=== PATIENT | male | born 1940 | race Caucasian/White ===

== ENCOUNTER → 2016-10-12 | Outpatient (CLI) | payer OTHER, BC | PROVIDERS: ATTEND Internal Medicine Hematology & Oncology | DX: R13.13 Dysphagia, pharyngeal phase (principal); R63.3 Feeding difficulties; J44.9 Chronic obstructive pulmonary disease, unspecified; G93.9 Disorder of brain, unspecified; Z85.72 Personal history of non-Hodgkin lymphomas; Z92.21 Personal history of antineoplastic chemotherapy | CPT/HCPCS: 74230; 92611; G8996; G8997; G8998 ==

== ENCOUNTER 2017-07-04 11:43 | Emergency (ER) | payer OTHER, BC ==
[2017-07-04] MEDS ORDERED: LEVALBUTEROL 1.25 MG/3 ML DEYVIAL IH ONE (12:14)
--- NOTE | 2017-07-04 12:18 | EDPHY ---
H & P Stated Complaint: dry cough since Wednesday Time Seen by Provider: 07/04/17 11:48 HPI/ROS: This patient complains of a cough of 3 days duration-dry and increasing in frequency. He is brought in by his for further evaluation of the symptoms by private vehicle. The patient has extensive past medical history including COPD on home O2 at 2 liters/minute at baseline and reports no increase in his baseline dyspnea with current coughing. They tried Mucinex without improvement in his symptoms that also include coryza. His recent history is notable for leukopenia attributable to his chemotherapy on a CBC on 1221 within overall white count of 2.4 K and an ANC of 1400. He is followed by Dr. Carlton for his non-Hodgkin's lymphoma. ROS: Constitutional: No high fevers or chills. No increase in fatigue. No other constitutional symptoms. HEENT: Positive nasal discharge. No sinus pain. No ear pain. No sore throat. He had a recent moles procedure to the right ear for squamous cell CA 10 days ago and reports no significant discomfort. Pulmonary: No pleuritic pain. Nonproductive. No hemoptysis. Cardiovascular: No chest pain or heart palpitations. No lightheadedness. No lower extremity swelling. No orthopnea or paroxysmal nocturnal dyspnea. GI: No abdominal pain. He does have loose stools-needed for loose watery stools over the past 3 days per day. No nausea or vomiting. No belly pain. : No urinary symptoms Musculoskeletal: No significant myalgias or other complaints. Neuro: No headache. No focal numbness tingling weakness Integumentary: No skin rash Endocrine: No polyuria, polydipsia or blurred vision. No other complaints Complete review of symptoms otherwise negative Source: Patient Exam Limitations: No limitations - Personal History Current Tetanus Diphtheria and Acellular Pertussis (TDAP): Yes Tetanus Vaccine Date: 2007 - Medical/Surgical History PMH: With patient's CO he had no chest pain-a collapse with syncope or presyncope Hx Asthma: Yes Hx Chronic Respiratory Disease: Yes Hx Diabetes: Yes Hx Cardiac Disease: Yes Hx Renal Disease: Yes Hx Cirrhosis: No Hx Alcoholism: No Hx HIV/AIDS: No Hx Splenectomy or Spleen Trauma: No Other PMH: HTN, CO 2006, AFIB, COPD, STGE4 KIDNEY DZ, DIABETES. CATARACT BILAT , TRACH CHILD, ROTATOR CUFF SURG, KNEE SURG, FEET SURG, STENT LT LEG, EAR SURG, skin cancer, non hodgkins lymphoma, - Family History Significant Family History: No pertinent family hx - Social History Smoking Status: Former smoker Alcohol Use: None Drug Use: None - Physical Exam Exam: Pleasant elderly male with normal vital signs on 2 L nasal cannula O2 General Appearance: Alert, no distress. Eyes: Pupils equal and round no pallor or injection. ENT, Mouth: Mucous membranes moist. Oropharynx is clear. Ears are clear bilaterally. Patient has a clean dry intact dressing to the right earlobe-site of moles procedure Respiratory: Rhonchi at the right base. Otherwise clear to auscultation bilaterally Cardiovascular: Regular rate and rhythm. No murmur gallop rub. No JVD. No calf swelling or tenderness. No peripheral edema. Gastrointestinal: Abdomen is soft and nontender, no masses, bowel sounds normal. Neurological: GCS 15 without focal deficits. Skin: Warm and dry, no rashes. Musculoskeletal: Neck is supple nontender. Extremities are symmetrical, full range of motion. Psychiatric: Mood and affect normal DIFFERENTIAL DIAGNOSIS: After history and physical exam differential diagnosis was considered for viral URI with cough, COPD exacerbation, pneumonia, influenza , mi Constitutional: Initial Vital Signs Heart Rate 67 07/04/17 11:47 Respiratory Rate 18 07/04/17 11:47 Blood Pressure 134/56 H 07/04/17 11:47 O2 Sat (%) 97 07/04/17 11:47 O2 Delivery Mode Nasal Cannula O2 (L/minute) 2 Allergies/Adverse Reactions: levofloxacin [From Levaquin] Allergy (Verified 07/04/17 11:51) Sulfa (Sulfonamide Antibiotics) Allergy (Verified 07/04/17 11:51) Home Medications: Medication Instructions Recorded Albuterol Hfa Anes Only 03/16/14 Bd Pen Wdl U/F 03/16/14 [place] 03/16/14 Furosemide 03/16/14 Glucagon Emergency Kit 03/16/14 Levemir 03/16/14 Nitrostat 03/16/14 Tradjenta 03/16/14 Venlafaxine HCl 03/16/14 Vitamin D3 03/16/14 Warfarin Sodium 03/16/14 novoLOG 03/16/14 Lantus 100 UNITS/ML (*) 12/31/17 Lenalidomide 07/04/17 Nitrostat 07/04/17 Stiolto Respimat Inhal [place] 07/04/17 riTUXimab 07/04/17 Medical Decision Making - Diagnostics EKG Interpretation: 12 lead EKG performed at 12:20 p.m. indication : Dyspnea rule out ischemic cardiac disease Sinus rhythm 70 Intervals: P R of 199 QRS of 156, QTC of 493 [place]: P of 0, QRS of 25, T of 212 Overall assessment sinus rhythm with left bundle branch block. No further analysis attempt given left bundle branch block. When compared to prior EKG dated 04/05/2015 left bundle branch block is present on the previous EKG. He was in AFib at that time. Imaging Results: Two-view chest x-ray: No focal infiltrates. Positive COPD by my interpretation. Imaging: I viewed and interpreted images myself ED Course/Re-evaluation: IV Nasal cannula O2 2 L with good O2 sats Patient is placed on a personnel monitor remained stable while here. Xopenex neb with marked reduction in frequency of his dry cough. He felt subjective improvement as well. A review of labs reveals leukopenia and mild neutropenia, also mild thrombocytopenia. Electrolytes are consistent with prior electrolyte studies for this patient with a baseline creatinine of 2.5. His troponin is elevated to the 0.08. His rapid influenza test is negative. Given his elevated troponin result will treat him with aspirin 324. Given that the patient is normotensive with no chest pain and a normal heart rate in the 60s, will hold on beta nikki nitrates at this time. Given this patient's combination of known CAD, pre-existing LBBB that makes EKG interpretation in terms of acute ischemia & elevated troponin, he warrants admission for further workup & treatment of potential acute cardiac ischemic disease. He also has mild neutropenia, COPD exacerbation & slight elevation of his venous lactate, concerning for early SIRS or sepsis. The patient requests [facility] for his admission. I spoke with Dr. Salas, hospitalist at [facility] accepts the patient for transfer I spoke with Dr. Tee, oncologist on-call for Dr. Carlton who requests antibiotic treatment given his age in neutropenia Ceftriaxone 1 g IV and doxycycline 100 p. o. (on warfarin so will avoid macrolides) Venous lactate is slightly elevated 2.2. Treated with saline bolus. The patient was transferred prior to the 2 hour repeat lactate interval. The patient remained stable throughout his stay here without additional symptoms or any instability in his vital signs. Discussion: This patient has a cough likely attributable to viral URI and COPD/ mild COPD exacerbation. However given extensive past medical history workup was pursued that also revealed neutropenia attributable to his chemotherapy. His ANC is 950. Given slightly elevated venous lactate, cannot rule out early sepsis in this patient. Will cover him with antibiotics and transfer to [facility] for admission. Patient remained stable at the time of transfer. Total bedside critical care time: 20" - Data Points Laboratory Results: Laboratory Results 07/04/17 12:25 07/04/17 12:25 Microbiology Results: MICROBIOLOGY 07/04/17 12:58 Blood Blood Culture - Preliminary 07/04/17 12:25 Blood Blood Culture - Preliminary Medications Given: Discontinued Medications Aspirin (Aspirin) 324 mg PO EDNOW ONE Stop: 07/04/17 13:22 Last Admin: 07/04/17 13:29 Dose: 324 mg Doxycycline Hyclate (Doxycycline Hyclate) 100 mg PO EDNOW ONE PRN Reason: Protocol Stop: 07/04/17 14:18 Last Admin: 07/04/17 14:45 Dose: 100 mg Sodium Chloride (Ns) 1,000 mls @ 0 mls/hr IV ONCE ONE; Wide Open PRN Reason: Protocol Stop: 07/04/17 13:54 Last Admin: 07/04/17 14:41 Dose: 1,000 mls Ceftriaxone Sodium 1 gm/ (Sodium Chloride) 100 mls @ 200 mls/hr IV EDNOW ONE PRN Reason: Protocol Stop: 07/04/17 14:34 Last Admin: 07/04/17 14:40 Dose: 100 mls Levalbuterol (Xopenex 1.25mg Neb) 1.25 mg IH EDNOW ONE Stop: 07/04/17 12:15 Last Admin: 07/04/17 12:59 Dose: 1.25 mg Departure - Departure Disposition: Acute Care Hospital Not [facility] Clinical Impression: Elevated troponin, COPD exacerbation Neutropenia Qualifiers: Neutropenia type: other drug-induced Qualified Code(s): D70.2 - Other drug- induced agranulocytosis Clinical Impression: (Ruled Out): Cough Condition: Fair Referrals: HARLAN SANTO [Other] - As per Instructions
--- NOTE | 2017-07-04 12:23 | CPEKG ---
Heart Rate: 70 RR Interval: 857 P-R Interval: 199 QRSD Interval: 156 QT Interval: 456 QTC Interval: 493 P [place]: 0 QRS [place]: 25 T Wave [place]: 212 EKG Severity - ABNORMAL ECG - EKG Impression: SINUS RHYTHM EKG Impression: ATRIAL PREMATURE COMPLEX EKG Impression: LEFT BUNDLE BRANCH BLOCK Electronically Signed By: Sly Waggoner 05-Jul-2017 10:30:48
[2017-07-04 12:46] LABS: INR 1.84 (0.83-1.16); PROTIME(PATIENT) 20.9 SEC (12.0-15.0)
[2017-07-04 12:54] LABS: PLATELET COUNT 55 10^3/uL (150-400)
[2017-07-04] MEDS ORDERED: ASPIRIN 81 MG CHEWABLE TAB PO ONE (13:21)
[2017-07-04] MEDS ORDERED: NS 1,000 ML IV ONE (13:53)
[2017-07-04] MEDS ORDERED: DOXYCYCLINE HYCLATE 100 MG CAP/TAB PO ONE (14:17)
[2017-07-04 16:11] VITALS: BP 124/67; PULSE 77; RESP 16; TEMP 98.4; O2SAT 98
== END 2017-07-04 15:51 | disposition short-term general hospital (02) ==
LOC: CED 11:43
DX: J44.1 Chronic obstructive pulmonary disease with (acute) exacerbation (principal); D70.2 Other drug-induced agranulocytosis; R79.89 Other specified abnormal findings of blood chemistry; E11.9 Type 2 diabetes mellitus without complications; I12.9 Hypertensive chronic kidney disease with stage 1 through stage 4 chronic kidney disease, or unspecified chronic kidney disease; N18.4 Chronic kidney disease, stage 4 (severe); I25.2 Old myocardial infarction; Z87.891 Personal history of nicotine dependence; Z79.01 Long term (current) use of anticoagulants; Z79.4 Long term (current) use of insulin; Z85.828 Personal history of other malignant neoplasm of skin; Z85.72 Personal history of non-Hodgkin lymphomas
CPT/HCPCS: 71020; 93005; 96361; 96365; 99285; J0696; 80048-PO; 83605-PO; 84484-PO; 85025-PO; 85610-PO; 85730-PO; 87400-PO

== ENCOUNTER 2017-07-18 08:26 | Inpatient (IN) | payer OTHER, BC ==
--- NOTE | 2017-07-18 08:45 | CPEKG ---
Heart Rate: 103 RR Interval: 583 QRSD Interval: 148 QT Interval: 436 QTC Interval: 571 QRS [place]: 28 T Wave [place]: 222 EKG Severity - ABNORMAL ECG - EKG Impression: ATRIAL FIBRILLATION EKG Impression: LEFT BUNDLE BRANCH BLOCK Electronically Signed By: Michael Arevalo 18-Jul-2017 15:07:57
[2017-07-18] MEDS ORDERED: IPRATROPIUM/ALBUTEROL 3 ML DEYVIAL IH ONE (08:56)
--- NOTE | 2017-07-18 08:59 | EDPHY ---
General - History Smoking Status: Former smoker Narrative: CHIEF COMPLAINT: Cough, fever HISTORY OF PRESENT ILLNESS: Patient presents with 2 days history of cough, intermittent fever, nausea, body aches. No chest pain. No headache. No neck pain or stiffness. No abdominal pain. No rashes or lesions. Patient does have extensive medical history including non-Hodgkin's lymphoma with recent hospitalization for lower respiratory infection on July 04. This was a [facility]. He was treated with antibiotics and discharged on the with ongoing antibiotic care. His symptoms did resolve until yesterday morning. Yesterday morning he noted cough that has been somewhat dry but sometimes productive. It is persistent. He has had fever with a T-max of 101. He has had some nausea but no vomiting. Some body aches. Minimal shortness of breath. No other associated complaints or modifying factors. REVIEW OF SYSTEMS: Ten systems reviewed and are negative unless otherwise noted in the HPI PCP: Dr. Jameson SPECIALISTS: Dr. Carlton, oncology Dr. Cotto, cardiology Dr. Adames, Nephrology PAST MEDICAL HISTORY: Non Hodgkin's lymphoma (mantle cell), COPD, atrial fibrillation, diabetes mellitus, coronary artery disease, chronic kidney disease stage 3-4 PAST SURGICAL HISTORY: No recent surgical history SOCIAL HISTORY: Nonsmoker. Lives with his spouse independently. Recently hospitalized at [facility] FAMILY HISTORY: Noncontributory EXAMINATION General Appearance: Alert, no distress, frail Head: normocephalic, atraumatic Eyes: Bilateral arcus senilis. Pupils equal and round, no conjunctival pallor or injection. EOMs intact ENT, Mouth: Mucous membranes moist. Uvula midline. Airway is widely patent Neck: Normal inspection, supple, non-tender. No meningeal signs Respiratory: Scattered rhonchi. Mild dry crackles. No wheezing. No diminishment. No distress. Cardiovascular: Irregularly irregular rate and rhythm. Intermittently tachycardic. Gastrointestinal: Abdomen is soft and nontender. No guarding. No distention or tympany Back: non-tender, no bony abnormalities Neurological: GCS 15. A&O, nonfocal, strength is symmetric in the limbs. Skin: Warm and dry, no rash. Multiple H box. No cellulitis or fluctuance noted Extremities: Nontender, no pedal edema. Range of motion is symmetric Psychiatric: Mood and affect normal DIFFERENTIAL DIAGNOSES: Including but not limited to sepsis, pneumonia, bronchitis, influenza, lower respiratory infection MDM: 8:55 a.m. Cough with fever, congestion body aches and nausea. No vomiting. No abdominal pain. Vital signs are tachycardic and tachypneic. Given his history and his vital signs, we immediately realized the possibility of sepsis in this patient. Thus he already has blood cultures being drawn, lactic acid being drawn. Chest x-ray, electronic device monitor, EKG and laboratory studies are all being obtained as quickly as possible. He is awake and alert no acute distress but will likely require admission the hospital. 9:10 a.m. Lactic acid is just within normal limits at 2.1. Remainder of laboratory studies pending. 9:30 a.m. Creatinine is elevated but at baseline. CBC pending. 9:45 a.m. positive for flu A. He is neutropenic but relatively close to baseline. He is afebrile here. He does not yet require supplemental oxygen, but given his complex history he will require admission to the hospital. I will discuss with hospitalist regarding his neutropenic fever treatment. Chest x-ray appears to be more viral and less likely pneumonia. This is not yet been read by radiologist. He is in no acute distress. 10:00 a.m. Positive influenza a with neutropenia likely due to chemo. He is afebrile. He is tachycardic but not hypoxic. He is not altered or delirious. He does appear ill but is stable. He does have underlying CHF with mild exacerbation, hypoxemia intermittently, and chronic AFib. He will require admission the hospital. At this time Dr. Arevalo has discussed with the hospitals. Procalcitonin is pending. We have not ordered antibiotics given his positive influenza A. We will defer to hospitalist for their recommendation regarding neutropenic treatment. I also did not order any IV fluid because his lactic acid was normal, he was not hypotensive, and he has a BNP that is significantly elevated. This would likely place him fluid overload, thus no IV fluid was ordered. At this time he has been admitted in stable condition with Tamiflu ordered. SUPERVISION: Patient was independently examined, but I discussed the case with my secondary supervising physician . Patient was evaluated and examined in conjunction with my secondary supervising physician as documented. We have both examined the patient. (Adis Cruz) Medical Decision Making: I evaluated this patient and discussed the case and workup in the data with Colton the physician certified medical technician assistant. Id I am in agreement that this patient has borderline elevated lactate however also has a significantly elevated BNP and history of congestive failure so additional fluids are not appropriate at this time. This patient is also a lymphoma patient who is currently on oral chemotherapy. Although he may be at risk for pulmonary embolus or other thromboembolic complications he has stage 3-4 kidney disease and we cannot use contrast currently to assess his lungs or to see if his recurrent infectious processes are secondary to any lymphoma at this time. We will treat him as a nosocomial infection since he was recently hospitalized. (iMchael Arevalo) - Diagnostics Imaging Results: Imaging Impressions Chest X-Ray 07/18/17 08:53 Impression: No pneumonia. Chronic airways disease. - Objective Vital Signs: Initial Vital Signs Temperature (C) 98.8 F 07/18/17 08:26 Heart Rate 112 H 07/18/17 08:26 Respiratory Rate 24 H 07/18/17 08:26 Blood Pressure 104/69 07/18/17 08:26 O2 Sat (%) 96 07/18/17 08:26 O2 Delivery Mode Room Air Allergies/Adverse Reactions: levofloxacin [From Levaquin] Allergy (Verified 07/04/17 11:51) Sulfa (Sulfonamide Antibiotics) Allergy (Verified 07/04/17 11:51) Home Medications: Medication Instructions Recorded Cholecalciferol Vit D3 [Vitamin D3 1,000 units PO DAILY 03/16/14 (*)] Furosemide [Lasix 20 MG (*)] 20 mg PO DAILY 03/16/14 Insulin Aspart [novoLOG] 4 unit SC TIDMEAL PRN 03/16/14 Linagliptin [Tradjenta] 5 mg PO DAILY 03/16/14 Venlafaxine HCl [Venlafaxine HCl 150 mg PO DAILY 03/16/14 ER] Warfarin Sodium [Coumadin 5MG (*)] 2.5 mg PO SUTUTHSA@16 03/16/14 Lantus 100 UNITS/ML (*) 1 - 2 unit SC HS PRN 07/04/17 Tiotropium Br/Olodaterol HCl 2 puffs IH DAILY 07/04/17 [Stiolto Respimat Inhal [place]] riTUXimab [Rituxan 100mg (RX)] 0 mg IV Q60D 07/04/17 Albuterol [Proventil Inhaler HFA 2 puffs IH Q4 PRN 07/18/17 (*)] Dronedarone HCl [Multaq 400 mg (*)] 400 mg PO BIDMEAL 07/18/17 Lenalidomide [Revlimid] 10 mg PO DAILY 07/18/17 Rosuvastatin Calcium [Crestor] 10 mg PO DAILY@18 07/18/17 Warfarin Sodium [Coumadin 2MG (*)] 4 mg PO MOWEFR@16 07/18/17 Laboratory Results: Laboratory Results 07/18/17 08:50 07/18/17 08:50 07/18/17 07/18/17 07/18/17 08:50 08:50 08:50 WBC RBC Hgb Hct MCV MCH MCHC RDW Plt Count MPV Neut % (Auto) Lymph % (Auto) Dickinson % (Auto) Eos % (Auto) Baso % (Auto) Nucleat RBC Rel Count Absolute Neuts (auto) Absolute Lymphs (auto) Absolute Monos (auto) Absolute Eos (auto) Absolute Basos (auto) Absolute Nucleated RBC Immature Gran % Seg Neutrophils % Band Neutrophils % Lymphocytes % Monocytes % Eosinophils % Myelocytes % Immature Gran # Absolute Seg Neuts Absolute Band Neuts Absolute Lymphocytes Absolute Monocytes Absolute Eosinophils Absolute Myelocytes Platelet Estimate Hypochromasia Smear Review By PT 20.1 SEC H SEC (12.0-15.0) INR 1.70 H (0.83-1.16) APTT 35.2 SEC SEC (23.0-38.0) VBG Lactic Acid Sodium 132 mEq/L L mEq/L (135-145) Potassium 3.6 mEq/L mEq/L (3.5-5.2) Chloride 97 mEq/L mEq/L (97-110) Carbon Dioxide 24 mEq/l mEq/l (22-31) Anion Gap 11 mEq/L mEq/L (8-16) BUN 20 mg/dL mg/dL (7-23) Creatinine 2.4 mg/dL H mg/dL (0.7-1.3) Estimated GFR 26 Glucose 272 mg/dL H mg/dL (70-100) Calcium 8.3 mg/dL L mg/dL (8.5-10.4) Total Bilirubin 1.0 mg/dL mg/dL (0.1-1.4) NT-Pro-B Natriuret Pep 6580 pg/mL H pg/mL (0-450) Lipase 37 IU/L IU/L (23-300) Procalcitonin 0.44 ng/mL H ng/mL (0.02-0.10) Nasal Influenza A PCR Nasal Influenza B PCR 07/18/17 07/18/17 07/18/17 08:50 08:50 08:35 WBC 2.03 10^3/uL L 10^3/uL (3.80-9.50) RBC 3.17 10^6/uL L 10^6/uL (4.40-6.38) Hgb 9.6 g/dL L g/dL (13.7-17.5) Hct 27.1 % L % (40.0-51.0) MCV 85.5 fL fL (81.5-99.8) MCH 30.3 pg pg (27.9-34.1) MCHC 35.4 g/dL g/dL (32.4-36.7) RDW 14.3 % % (11.5-15.2) Plt Count 65 10^3/uL L 10^3/uL (150-400) MPV 12.1 fL H fL (8.7-11.7) Neut % (Auto) 78.8 % H % (39.3-74.2) Lymph % (Auto) 15.3 % % (15.0-45.0) [place] % (Auto) 4.4 % L % (4.5-13.0) Eos % (Auto) 0.5 % L % (0.6-7.6) Baso % (Auto) 0.5 % % (0.3-1.7) Nucleat RBC Rel Count 0.0 % % (0.0-0.2) Absolute Neuts (auto) 1.60 10^3/uL L 10^3/uL (1.70-6.50) Absolute Lymphs (auto) 0.31 10^3/uL L 10^3/uL (1.00-3.00) Absolute Monos (auto) 0.09 10^3/uL L 10^3/uL (0.30-0.80) Absolute Eos (auto) 0.01 10^3/uL L 10^3/uL (0.03-0.40) Absolute Basos (auto) 0.01 10^3/uL L 10^3/uL (0.02-0.10) Absolute Nucleated RBC 0.00 10^3/uL 10^3/uL (0-0.01) Immature Gran % 0.5 % % (0.0-1.1) Seg Neutrophils % 53 % % Band Neutrophils % 24 % % Lymphocytes % 19 % % Monocytes % 2 % % Eosinophils % 1 % % Myelocytes % 1 % % Immature Gran # 0.01 10^3/uL 10^3/uL (0.00-0.10) Absolute Seg Neuts 1.08 10^/uL L 10^/uL (1.70-6.50) Absolute Band Neuts 0.49 10^3/uL 10^3/uL (0.00-0.70) Absolute Lymphocytes 0.39 10^3/uL L 10^3/uL (1.00-3.00) Absolute Monocytes 0.04 10^3/uL L 10^3/uL (0.30-0.80) Absolute Eosinophils 0.02 10^3/uL L 10^3/uL (0.03-0.40) Absolute Myelocytes 0.02 10^3/mL H 10^3/mL (0.00-0.00) Platelet Estimate DECREASED L (ADEQ) Hypochromasia 1+ H Smear Review By Victorino GILLILAND MD PT INR APTT VBG Lactic Acid 2.1 mmol/L mmol/L (0.7-2.1) Sodium Potassium Chloride Carbon Dioxide Anion Gap BUN Creatinine Estimated GFR Glucose Calcium Total Bilirubin NT-Pro-B Natriuret Pep Lipase Procalcitonin Nasal Influenza A PCR FLU A DETECTED (NEGATIVE) Nasal Influenza B PCR NEGATIVE FOR FLU B (NEGATIVE) Medications Given: Discontinued Medications Albuterol/Ipratropium (Duoneb) 3 ml IH EDNOW ONE Stop: 07/18/17 08:57 Last Admin: 07/18/17 09:10 Dose: 3 ml Oseltamivir Phosphate (Tamiflu) 75 mg PO EDNOW ONE Stop: 07/18/17 09:47 Last Admin: 07/18/17 09:59 Dose: 75 mg Departure - Departure Disposition: [facility] Clinical Impression: Influenza A, Hypoxemia Congestive heart failure Qualifiers: Congestive heart failure type: systolic Congestive heart failure chronicity: acute on chronic Qualified Code(s): I50.23 - Acute on chronic systolic ( congestive) heart failure Atrial fibrillation Qualifiers: Atrial fibrillation type: chronic Qualified Code(s): I48.2 - Chronic atrial fibrillation Neutropenia Qualifiers: Neutropenia type: secondary to cancer chemotherapy Qualified Code(s): D70.1 - Agranulocytosis secondary to cancer chemotherapy Non-Hodgkin lymphoma Qualifiers: Non-Hodgkin lymphoma type: unspecified type Lymphoma site: unspecified region Qualified Code(s): C85.90 - Non-Hodgkin lymphoma, unspecified, unspecified site Condition: Fair
[2017-07-18 09:07] LABS: PLATELET COUNT 65 10^3/uL (150-400)
[2017-07-18 09:16] LABS: INR 1.7 (0.83-1.16); PROTIME(PATIENT) 20.1 SEC (12.0-15.0)
[2017-07-18] MEDS ORDERED: OSELTAMIVIR PHOSPHATE 75 MG CAP PO ONE (09:46)
--- NOTE | 2017-07-18 10:56 | ASMTCMCOM ---
CM Note CM Note Notes: Patient admitted for Influenza A, neutropenia (but close to baseline), hypoxemia, renal insufficiency. Patient has extensive PMH including Non-Hodgkins Lymphoma, COPD, CHF, CAD, DM, A Fib, CKD Stage 3-4. Patient recently hospitalized at [facility] on 07/04/17 for URI; d/c'd home with , Joyce on 07/06/17; they live in [place]. Patient is on oral chemo and is followed by Dr Carlton at [facility]. Patient's PCP is Dr. James Jameson w/ [facility] in [place]. Exact DC needs unknown, CM to follow. Date Signed: 07/18/2017 10:56 AM Electronically Signed By:Maricel Ruiz RN
[2017-07-18] MEDS ORDERED: ACETAMINOPHEN 325 MG TAB PO PRN (12:05)
[2017-07-18] MEDS ORDERED: ALBUTEROL 60 PUFFS/8 GM MDI IH PRN (12:08)
[2017-07-18] MEDS ORDERED: LANTUS SC PRN (12:08)
--- NOTE | 2017-07-18 13:06 | GHP ---
[f rep st] HISTORY AND PHYSICAL DATE OF ADMISSION: 07/18/2017 CHIEF COMPLAINT: Cough, shortness of breath. HISTORY OF PRESENT ILLNESS: The patient is a 77-year-old with a history significant for non-Hodgkin' s lymphoma, chronic renal failure, COPD, and diabetes, who comes in with cough and shortness of breat h. He states he has been sick since July 02. He was admitted to [facility] from July 04 through July 06. His flu was negative at that time and he was diagnosed with chronic bronch itis and COPD exacerbation. He was treated with prednisone and Augmentin. He was discharged on the , came home and finished his week of antibiotics and felt a little bit better, but certainly not h is symptoms never completely went away. After he finished his antibiotics, he started having more of a cough, developed some diarrhea and last night had a fever of 101.7. This morning when he got up, he still had a low-grade fever, felt like he was more short of breath, so his brought him into t he ER for further evaluation and treatment. He denies headache, sinus issues. He denies any chest pain or palpitations. He has had no abdominal complaints no urinary changes or bowel changes. The diarrhea has resolved. He has had no lower ext remity edema. No other joint pains or muscle aches. REVIEW OF SYSTEMS: A 10 point comprehensive review of systems was done, with pertinent positives pre sent in the HPI. PAST MEDICAL HISTORY: 1. Type 2 diabetes fairly well controlled. 2. Atrial fibrillation, on anticoagulation and Multaq. 3. Non-Hodgkin's lymphoma, followed by Dr. Hamida Carlton, currently on Revlimid and Rituxan. 4. Chronic renal failure, baseline creatinine about 2.5, followed by Dr. Adames. 5. COPD. He has quit smoking. Currently on inhalers. 6. History of DVT. 7. Dyslipidemia. 8. Depression. 9. Obstructive sleep apnea, on CPAP. FAMILY HISTORY: Significant for heart disease, cancer and diabetes. SOCIAL HISTORY: He is . He and his live in what sounds like a duplex with their dianae r. He is fairly independent, although occasionally uses either a cane, walker or wheelchair, dependi ng on how he feels. He quit smoking and does not currently drink. He and his moved from [facility] 3 years ago when she retired. CODE STATUS: He wishes to be a full code. MEDICATIONS: Albuterol, Crestor, Multaq, Coumadin, Effexor, Tradjenta, Rituxan infusions, insulin enrique th Lantus and Humalog as needed, Revlimid, Lasix. ALLERGIES: To Levaquin and sulfa. PHYSICAL EXAM: VITAL SIGNS: His temp is 38, respirations 20, he is 95% in room air, blood pressure is 110/54. GENERAL: He is an ill-appearing 77-year-old man in some mild distress. He is alert. HE ENT: Sclerae anicteric. Pupils are equal. Mucous membranes are slightly dry. Oropharynx is clear. NECK: Supple. No adenopathy. HEART: Regular and distant. LUNGS: Diminished bilaterally. No o bvious wheeze or rhonchi. ABDOMEN: Soft. Positive bowel sounds. No obvious tenderness. EXTREMITI ES: No clubbing, cyanosis, or edema. Pulses diminished, but intact. MUSCULOSKELETAL: No joint eff usions or deformities noted. NEUROLOGIC: He is alert. Speech is fluent. Moving all 4 extremities. SKIN: No rash. PSYCHOLOGIC: Normal affect. LABORATORY DATA: CBC shows a white count of 2.03 with 78% neutrophils, hemoglobin 9.6 with a platele t count of 65. These appear fairly stable. He does have 25 bands. Electrolytes: Sodium 132, BUN 2 0 with a creatinine of 2.4, glucose is elevated at 272. BNP elevated at 6580. Lactate mildly elevat ed at 2.2. Recheck is 2.1, within normal limits. IMAGING: Chest x-ray reviewed and personally interpreted as no infiltrate. EKG reviewed, personally interpreted: Left bundle branch block, in atrial fibrillation. This again is an old finding. ASSESSMENT AND PLAN: A 77-year-old man with multiple medical issues, presents with increased shortne ss of breath and fever. He is positive for influenza. Given his multiple medical comorbidities, he may need greater than 2 midnight stay. 1. Influenza with increasing shortness of breath and fever. He is mildly immunocompromised due to h is cancer treatment. Plan: Admit to the hospital for close monitoring. Start him on Tamiflu. Low threshold to add antibiotics. Blood cultures have been drawn and are pending. 2. Non-Hodgkin's lymphoma, currently on Revlimid and Rituxan. I did discuss the case with Dr. Curt whitley who will see the patient in consultation. In the meantime, will resume his usual medications. 3. Type 2 diabetes, poorly controlled currently likely due to his acute illness. Will add sliding s bryan insulin and continue his usual medications. 4. History of atrial fibrillation, on anticoagulation with Coumadin and currently rate controlled. Will continue his usual dose and ask Pharmacy to help adjust as needed. 5. 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 Baseline creatinine is 2.4. He is followed by Dr. Adames and is stable at this time. He has normal urine function currently. 6. Elevated B natriuretic peptide. The patient does not have a history of congestive heart failure on his problem list. Will check an echocardiogram while he is here. Monitor his I's and O's and vicky ly weights. 7. Chronic obstructive pulmonary disease. The patient has stopped smoking. Continue his usual medi cations and inhalers. Will not add prednisone at this time. 8. Dyslipidemia. Continue statin. 9. Depression. Continue Effexor. 10. Obstructive sleep apnea. Will have his bring in his CPAP machine if needed. Copy requested to: MD Doroteo Singh /[id number]/MODL
[2017-07-18] MEDS ORDERED: INSULIN GLARGINE 100 UNITS/ML UNIT SC PRN (13:17)
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
--- NOTE | 2017-07-18 13:40 | PDMN ---
Medical Necessity Medical necessity: C/M review: est. > 2 MN LOS for eval and TX of acute and persistent influenza, increasing shortness of breath, fever, elevated BNP, requiring planned echocardiogram, ongoing oral Tamiflu, pulse oximetry, acute inpt PT/OT, comorbid non-Hodgkins lymphoma on Revlimid and Rituxan, immunocompromised, poorly controlled type 2 diabetes, chronic renal failure stage 3 to 4, COPD, dyslipidemia, depression, obstructive sleep apnea, history of atrial fibrillation, DVT, chronic anticoagulation, 07/02/2017 - 07/06/2017 hospitalization for chronic bronchitis, COPD exacerbation per H/P.
[2017-07-18] MEDS ORDERED: WARFARIN SODIUM 5 MG TAB PO SCH (16:00)
[2017-07-18] MEDS: DRONEDARONE HCL 400 MG TAB PO SCH (17:30)
[2017-07-18] MEDS ORDERED: ROSUVASTATIN CALCIUM 10 MG TAB PO SCH (18:00)
[2017-07-18] MEDS ORDERED: OSELTAMIVIR PHOSPHATE 75 MG CAP PO SCH (18:00)
[2017-07-18 19:51] VITALS: RESP 18
[2017-07-19 05:01] LABS: PLATELET COUNT 59 10^3/uL (150-400)
[2017-07-19] MEDS ORDERED: POTASSIUM CL 20 MEQ TAB PO ONE (06:01)
[2017-07-19] MEDS ORDERED: Tiotropium Br/Olodaterol Hcl [Stiolto Respimat Inhal Spray] 2 PUFF IH SCH (09:00)
[2017-07-19] MEDS ORDERED: FUROSEMIDE 20 MG TAB PO SCH (09:00)
[2017-07-19] MEDS ORDERED: (Lenalidomide [Revlimid] 5 MG) PO SCH (09:00)
[2017-07-19] MEDS ORDERED: VENLAFAXINE XR 150 MG CAP PO SCH (09:00)
[2017-07-19] MEDS ORDERED: OSELTAMIVIR 6 MG/ML UDSYR PO SCH (09:00)
[2017-07-19] MEDS ORDERED: CHOLECALCIFEROL VIT D3 1,000 UNITS TAB PO SCH (09:00)
[2017-07-19] MEDS ORDERED: (Lenalidomide [Revlimid] 10 MG) PO SCH (09:00)
[2017-07-19] MEDS: DRONEDARONE HCL 400 MG TAB PO SCH (09:21)
[2017-07-19 11:15] VITALS: PULSE 90; TEMP 98.2
[2017-07-19 11:33] LABS: INR 1.38 (0.83-1.16); PROTIME(PATIENT) 17.1 SEC (12.0-15.0)
--- NOTE | 2017-07-19 12:10 | SOAPPROG ---
SOAP Progress Note Assessment/Plan: Assessment: - Mantle cell lymphoma - currently on Rev/Rituxan. WBC and plts a little low, but I would continue his Revlimid for now - Influenza A - tolerating Tamiflu - COPD He is afebrile and taking food and fluids. Provided that he is independent in the activities of daily living (or at least at baseline). I would think he could go home today or tomorrow. Plan: Continue Revlimid Continue Tamiflu Subjective: Sitting up and eating. Has been up to the bathroom. Minimal diarrhea Objective: Vital Signs Temp Pulse Resp BP Pulse Ox 36.8 C 90 18 118/54 L 92 07/19/17 11:05 07/19/17 11:05 07/19/17 11:05 07/19/17 11:05 07/19/17 11:05 Laboratory Results 07/19/17 04:40 07/19/17 04:40 07/17/17 07/18/17 07/19/17 23:59 23:59 23:59 Intake Total 3700 Balance 3700 PT 17.1 SEC (12.0-15.0) H 07/19/17 11:15 INR 1.38 (0.83-1.16) H 07/19/17 11:15 Physical Exam - Physical Exam General Appearance: alert, no apparent distress Skin: pallor Neuro/Psych: normal mood/affect ICD10 Worksheet Patient Problems: Problems Problem Status Onset Atrial fibrillation Acute Congestive heart failure Acute Hypoxemia Acute Influenza A Acute Neutropenia Acute Non-Hodgkin lymphoma Acute COPD exacerbation Acute Elevated troponin Acute
[2017-07-19 12:30] VITALS: BP 120/58; O2SAT 98
--- NOTE | 2017-07-19 13:37 | ECHO ---
[email or web address] [address] [address] Main: [phone] Fax: Transthoracic Echocardiogram Name: CHAS LINK MR#: [id number] Study Date: 07/19/2017 Study Time: 07:59 AM Date of : 1940 Age: 77 year(s) Height: 175.3 cm (69 in.) Weight: 75.75 kg (167 lb.) BSA: 1.91 m2 Gender: Male Examination: Echo Indication: CHF, hx Atrial fib Image Quality: Contrast: Requested by: Preethi Morales BP: / Heart Rate: Rhythm: Indication: CHF, hx Atrial fib Procedure Staff Straddle Truck Driver: Sheila Christopher Reading Physician: Ajith Saavedra Requesting Provider: Conclusions: Mildly dilated left ventricle. Low normal left ventricular systolic function. The ejection fraction is estimated to be 50 %. LV septal wall is consistent with conduction abnormality. LV basal inferior and mid and basilar inferolateral laureano are hypokinetic.. Mild mitral valve regurgitation is present. Moderate tricuspid regurgitation is present. Measurements: Chambers Valvular Assessment AV/MV Valvular Assessment TV/PV Normal Normal Normal Name Value Range Name Value Range Name Value Range Ao Courtney (MM): 3.9 cm (2.2 cm-3.7 AV meanP mmHg ( - ) TR Vmax: 2.96 mm/s ( - ) cm) MV E Vmax: 1.19 m/s ( - ) TR PGmax: 35 mmHg ( - ) IVSd (2D): 0.7 cm (0.6 cm-1.1 MV A Vmax: 0.63 m/s ( - ) syst. PAP: 40 mmHg ( - ) cm) MV E/A: 1.89 ( - ) LVDd (2D): 5.9 cm (4.2 cm-5.9 cm) LVDs (2D): 4.8 cm (2.1 cm-4 cm) LVPWd (2D): 0.8 cm (0.6 cm-1 cm) LVEF (BP): 58 % (>=55 %) EF Range: 50 % Continued Measurements: Chambers Valvular Assessment AV/MV Valvular Assessment TV/PV Name Value Name Value Name Value LADs: 4.0 cm MV E/E' Septal: 13.40 CVP (est.): 5 mmHg Patient: CHSA LINK Study Date: 07/19/2017 Page 1 of 2 07:59 AM LADs Lon.1 cm MV E/E' Lateral: 10.90 LA Area: 19.1 cm2 Findings: Left Ventricle: Mildly dilated left ventricle. No LV hypertrophy. Low normal left ventricular systolic function. The ejection fraction is estimated to be 50 %. LV septal wall is consistent with conduction abnormality. LV basal inferior and mid and basilar inferolateral laureano are hypokinetic.. Right Ventricle: Normal size right ventricle. Left Atrium: The left atrium is normal in size. Right Atrium: The right atrium is normal in size. Mitral Valve: Mild mitral valve leaflet calcification is present. Mild-moderate mitral annular calcification. Mild mitral valve regurgitation is present. Aortic Valve: The aortic valve is normal in appearance and function. Tricuspid Valve: The tricuspid valve is normal in appearance and function. Moderate tricuspid regurgitation is present. RVSP is 40mmHG.. Pulmonic Valve: The pulmonic valve is normal in appearance and function. Aorta: The aorta is normal. Pericardium: No pericardial effusion. (No Signature Object) Patient: CHAS LINK Study Date: 07/19/2017 Page 2 of 2 07:59 AM [id number]
--- NOTE | 2017-07-19 14:22 | GDS ---
[f rep st] DISCHARGE SUMMARY DIAGNOSES: 1. Influenza A. 2. Acute respiratory failure, likely secondary to acute chronic obstructive pulmonary disease exacer bation, secondary to #1. 3. Congestive heart failure with elevated BNP. 4. Diabetes. 5. Atrial fibrillation, on anticoagulation and Multaq. 6. Non-Hodgkin's lymphoma. Patient pancytopenic due to current chemotherapy. 7. Chronic renal failure. Baseline creatinine about 2.5. Follow up with Dr. Adames. 8. History of deep venous thrombosis. 9. Dyslipidemia. 10. Depression. 11. Obstructive sleep apnea, on continuous positive airway pressure. CONSULTATIONS: Dr. Whitman, Oncology. PROCEDURES DONE: Echocardiogram showing inferior hypokinesis with an estimated EF of 50%. Chest x-r ay, no pneumonia, chronic airways disease. HOSPITAL COURSE: The patient is a 77-year-old who was recently admitted to [facility] w ith shortness of breath and bronchitis with COPD exacerbation at the end of June. He was hospita lized for a few days and discharged on prednisone and Augmentin. Soon after stopping the medications , he started feeling poorly again and had increasing shortness of breath on the day of admission. He came to the emergency department and was diagnosed with influenza A. Chest x-ray was unremarkable. He did have an elevated BNP. He was admitted to the hospital, placed on Tamiflu, nebulizer treatmen ts, and over the course of the night, he felt much improved. BNP was elevated during his hospitaliza tion. I suspect this may be due to some mild congestive heart failure. He has atrial fibrillation a s well as renal failure, which has difficulty clearing the BNP. Echocardiogram was done which showed an estimated EF of 50% with some inferior hypokinesis. The patient admits to having a heart attack years ago, which may account for the hypokinesis. There is no evidence of diffuse hypokinesis, which would be concerning for chemotherapy toxicity. The patient was feeling much improved on the 2nd day of his hospitalization. He had no shortness of breath and was feeling pretty much back to normal wi th a room air sat of 98%. CONDITION ON DISCHARGE: Good. PHYSICAL EXAMINATION: VITAL SIGNS: He is afebrile. Room air sat is 98%. Heart rate 90, blood pres sure 120/58. GENERAL: He is an elderly man in no obvious distress. He is alert. HEART: Regular. LUNGS: Diminished without significant wheeze or rhonchi. EXTREMITIES: He has no significant edema. DISCHARGE MEDICATION: Please see discharge medication form. He was placed on Tamiflu that was renal ly dosed for his chronic renal failure. FOLLOWUP INSTRUCTIONS: He should follow up with Dr. Hamida Carlton, his oncologist at the end of this jina k. Follow up with his house father. I did give him a disc copy of his echocardiogram to share with his heart doctor, and he can follow up with his primary care physician as well. Total time spent with this patient on day of discharge and coordination of care is 35 minutes. Copy requested to: James Jameson MD /[id number]/MODL
--- NOTE | 2017-07-19 15:38 | ASDISCHSUM ---
Discharge Information Plan Status:Home with No Needs Medically Cleared to Leave:07/18/2017 Discharge Date:07/19/2017 02:52 PM CM D/C Disposition:Home, Routine, Self-Care ADT D/C Disposition:Home, Routine, Self-Care Projected Discharge Date:07/19/2017 02:52 PM Transportation at D/C:Family Discharge Delay Reason: Follow-Up Date:07/19/2017 02:52 PM Discharge Slot: Final Diagnosis: Placement Information Patient Contact Information Contact Name:TORRES Relationship: Address:[address] [place] Alternate Phone: State/Zip Code:[place] [address] Email: Financial Information Financial Class: Primary Plan Desc:MEDICARE INPATIENT Primary Plan Number:[id number] Secondary Plan Desc: OUT OF STATE [facility] Secondary Plan Number:[id number] Assessment Information [facility] CM Progress Note CM Note CM Note Notes: Patient admitted for Influenza A, neutropenia (but close to baseline), hypoxemia, renal insufficiency. Patient has extensive PMH including Non-Hodgkins Lymphoma, COPD, CHF, CAD, DM, A Fib, CKD Stage 3-4. Patient recently hospitalized at [facility] on 07/04/17 for URI; d/c'd home with , Joyce on 07/06/17; they live in [place]. Patient is on oral chemo and is followed by Dr Carlton at [facility]. Patient's PCP is Dr. James Jameson w/ [facility] in [place]. Exact DC needs unknown, CM to follow. Date Signed: 07/18/2017 10:56 AM Electronically Signed By:Maricel Ruiz RN Intervention Information
[2017-07-19] MEDS ORDERED: WARFARIN SODIUM 5 MG TAB PO ONE (16:00)
[2017-07-19] MEDS ORDERED: WARFARIN SODIUM 2 MG TAB PO SCH (16:00)
== END 2017-07-19 14:52 | disposition home or self-care (01) | DRG 193 ==
LOC: F1N 10:42
PROVIDERS: ADMIT Internal Medicine Pulmonary Disease; ATTEND Internal Medicine Pulmonary Disease
DX: J10.1 Influenza due to other identified influenza virus with other respiratory manifestations (principal); J44.1 Chronic obstructive pulmonary disease with (acute) exacerbation; J96.90 Respiratory failure, unspecified, unspecified whether with hypoxia or hypercapnia; D61.810 Antineoplastic chemotherapy induced pancytopenia; C83.10 Mantle cell lymphoma, unspecified site; I50.9 Heart failure, unspecified; E11.9 Type 2 diabetes mellitus without complications; I48.91 Unspecified atrial fibrillation; I25.10 Atherosclerotic heart disease of native coronary artery without angina pectoris; N18.3 Chronic kidney disease, stage 3 (moderate); G47.33 Obstructive sleep apnea (adult) (pediatric); E78.5 Hyperlipidemia, unspecified; Z79.01 Long term (current) use of anticoagulants; F32.9 Major depressive disorder, single episode, unspecified; Z87.891 Personal history of nicotine dependence; Z86.718 Personal history of other venous thrombosis and embolism
CPT/HCPCS: 97161-GP; 97165-GO; 97530-GP; G8978-GP-CJ; G8979-GP-CI; G8987-GO-CI; G8988-GO-CI